=== PATIENT | female | born 1955 ===

== ENCOUNTER 2017-04-21 08:27 | Emergency (ER) | payer OTHER ==
[2017-04-21 08:43] VITALS: TEMP 97.1
--- NOTE | 2017-04-21 09:24 | ED PDOC ---
HPI: Abdomen Time Seen by Provider: 04/21/17 09:12 Chief Complaint (Nursing): GI Problem Chief Complaint (Provider): Abdominal pain History Per: Patient History/Exam Limitations: no limitations Onset/Duration Of Symptoms: Days (x 3) Current Symptoms Are (Timing): Still Present Associated Symptoms: Constipation Additional Complaint(s): Ida is a 61 y/o female with no past medical history who presents to the ED complaining of epigastric abdominal pain associated with constipation, ongoing for 3 days. Denies any associated fever, back pain, nausea, vomiting, or hematochezia. Patient also complaining of burning on urination. PMD: Unknown Past Medical History Reviewed: Historical Data, Nursing Documentation, Vital Signs Vital Signs: Last Vital Signs Temp 97.1 F L 04/21/17 08:42 Pulse 69 04/21/17 08:42 Resp 20 04/21/17 08:42 BP 121/83 04/21/17 08:42 Pulse Ox 98 04/21/17 11:12 - Medical History PMH: No Chronic Diseases - Surgical History Surgical History: Back Surgery Other surgeries: Partial hysterectomy - Family History Family History: States: Unknown Family Hx - Social History Current smoker - smoking cessation education provided: No Alcohol: None Drugs: Denies - Immunization History Hx Tetanus Toxoid Vaccination: No Hx Influenza Vaccination: No Hx Pneumococcal Vaccination: No - Home Medications Home Medications: Ambulatory Orders Medication Instructions Recorded Famotidine [Pepcid] 20 mg PO Q12 #20 tab 04/21/17 Polyethylene Glycol 3350 [Miralax] 17 gm PO DAILY #10 packet 04/21/17 - Allergies Allergies/Adverse Reactions: Allergies Allergy/AdvReac Type Severity Reaction Status Date / Time No Known Allergies Allergy Verified 04/21/17 08:48 Review of Systems ROS Statement: Except As Marked, All Systems Reviewed And Found Negative Constitutional: Negative for: Fever Gastrointestinal: Positive for: Abdominal Pain (Epigastric), Constipation. Negative for: Nausea, Vomiting, Hematochezia Genitourinary Female: Positive for: Other (Burning on urination) Musculoskeletal: Negative for: Back Pain Physical Exam - Reviewed Nursing Documentation Reviewed: Yes Vital Signs Reviewed: Yes - Physical Exam Appears: Positive for: Non-toxic, No Acute Distress Head Exam: Positive for: ATRAUMATIC, NORMAL INSPECTION, NORMOCEPHALIC Skin: Positive for: Normal Color, Warm, Dry Eye Exam: Positive for: EOMI, Normal appearance, PERRL Neck: Positive for: Normal, Painless ROM, Supple Cardiovascular/Chest: Positive for: Regular Rate, Rhythm. Negative for: Murmur Respiratory: Positive for: Normal Breath Sounds. Negative for: Accessory Muscle Use, Respiratory Distress Gastrointestinal/Abdominal: Positive for: Soft, Tenderness (Mild epigastric tenderness on palpation) Back: Positive for: Normal Inspection. Negative for: L CVA Tenderness, R CVA Tenderness Extremity: Positive for: Normal ROM. Negative for: Pedal Edema, Deformity Neurologic/Psych: Positive for: Alert, Oriented - Laboratory Results Result Diagrams: 04/21/17 09:37 04/21/17 10:31 - ECG O2 Sat by Pulse Oximetry: 98 (RA) Pulse Ox Interpretation: Normal Medical Decision Making Medical Decision Making: Time: 9:17 Initial Plan: --CMP --CBC --Urine culture --Urine dipstick --Pending reevaluation Time: 10:52 --Pepcid 20 mg PO Scribe Attestation: Documented by Dannielle Yin, acting as a scribe for Ravi Hooker MD Provider Scribe Attestation: All medical record entries made by the Scribe were at my direction and personally dictated by me. I have reviewed the chart and agree that the record accurately reflects my personal performance of the history, physical exam, medical decision making, and the department course for this patient. I have also personally directed, reviewed, and agree with the discharge instructions and disposition. Disposition - Clinical Impression Clinical Impression: Gastritis, Constipation - Patient ED Disposition Is Patient to be Admitted: No Counseled Patient/Family Regarding: Studies Performed, Diagnosis, Need For Followup, Rx Given - Disposition Referrals: [facility] [Outside] Disposition: Routine/Home Disposition Time: 11:19 Condition: FAIR Prescriptions: Famotidine [Pepcid] 20 mg PO Q12 #20 tab Polyethylene Glycol 3350 [Miralax] 17 gm PO DAILY #10 packet Instructions: Gastritis (ED), Constipation (ED) Forms: [facility] (Vietnamese) Print Language: YAKUT
[2017-04-21 09:39] LABS: BASO # 0.1 K/uL (0.0-0.2); EOS # 0.3 K/uL (0.0-0.7); EOS % 3.4 % (0.0-4.0); HEMOGLOBIN 12.9 g/dL (12.0-16.0); LYMPH # 2.5 K/uL (1.0-4.3); LYMPH % 33.3 % (20.0-40.0); MEAN CELL VOLUME 86.2 fl (81.0-99.0); MEAN CORPUSCULAR HEMOGLOBIN 28.2 pg (27.0-31.0); MEAN CORPUSCULAR HGB CONC 32.8 g/dL (33.0-37.0); MEAN PLATELET VOLUME 10.3 fl (7.2-11.7); MONO # 0.5 K/uL (0.0-0.8); MONO % 6.8 % (0.0-10.0); NEUT # 4.1 K/uL (1.8-7.0); NEUT % 55.5 % (50.0-75.0); RBC 4.55 Mil/uL (3.80-5.20); WHITE BLOOD COUNT 7.4 K/uL (4.8-10.8)
[2017-04-21 10:48] LABS: ALB/GLOB RATIO 1.3 (1.0-2.1); ALBUMIN 4.2 g/dL (3.5-5.0); ALT/SGPT 28 U/L (9-52); AST/SGOT 23 U/L (14-36); BLOOD UREA NITROGEN 13 mg/dl (7-17); CALCIUM 9.2 mg/dL (8.4-10.2); GFR AFRICAN-AMERICAN > 60; GFR NON-AFRICAN AMERICAN > 60
[2017-04-21 11:38] VITALS: BP 120/84; PULSE 72; RESP 17; O2SAT 99
== END 2017-04-21 11:57 | disposition home or self-care (01) ==
LOC: H.ER 08:27
DX: K59.00 Constipation, unspecified (principal); K29.70 Gastritis, unspecified, without bleeding

== ENCOUNTER 2017-05-10 12:49 | Emergency (ER) | payer OTHER ==
[2017-05-10 13:17] VITALS: BP 116/67; PULSE 68; RESP 18; TEMP 98; O2SAT 99
[2017-05-10] MEDS ORDERED: Iohexol 240 (50 ml) PO ONE (13:52)
[2017-05-10] MEDS ORDERED: Iohexol 240 (50 ml) ONE (14:34)
--- NOTE | 2017-05-10 14:58 | RAD ---
PROCEDURE: Radiographs of the chest and abdomen (obstructive series) HISTORY: abd pain COMPARISON: No prior. TECHNIQUE: AP radiograph of the chest, with upright and supine radiographs of the abdomen. FINDINGS: CHEST: Lungs: Minor linear atelectasis/scarring changes seen in the left mid to lower lung field Cardiovascular: Heart size is borderline - mildly enlarged. . Pleura: No pleural fluid. No pneumothorax. Other findings: None. ABDOMEN AND PELVIS: Bowel: Stool is seen throughout the ascending and transverse colon suggesting mild constipation. No evidence to suggest acute mechanical bowel obstruction. . Free air: No evidence of free intraperitoneal air seen under the diaphragmatic surfaces. Bones: No acute fracture seen. E. Other findings: None. IMPRESSION: Minor linear atelectasis/ scarring change left mid to lower lung field. Findings also suggest mild constipation.
--- NOTE | 2017-05-10 15:14 | ED PDOC ---
HPI: Abdomen Time Seen by Provider: 05/10/17 13:32 Chief Complaint (Nursing): Abdominal Pain Chief Complaint (Provider): Abdominal Pain History Per: Patient History/Exam Limitations: no limitations Onset/Duration Of Symptoms: Days (x3 weeks), Intermittent Episodes Current Symptoms Are (Timing): Still Present Additional Complaint(s): Ida Carlson is a 61 year old female who presents to the emergency department with a complaint of worsening abdominal pain associated with some nausea ongoing intermittently for 3 weeks. Denied any fever, chills, vomiting, dysuria, hematuria, taking pain medication for relief, recent travels or following up with PCP. Upon review of old charts, patient was seen in ED at [facility] 2 weeks ago for a UTI and discharged with antibiotics. PMD: none provided Past Medical History Reviewed: Historical Data, Nursing Documentation, Vital Signs Vital Signs: Last Vital Signs Temp 98 F 05/10/17 13:14 Pulse 68 05/10/17 13:14 Resp 18 05/10/17 13:14 BP 116/67 05/10/17 13:14 Pulse Ox 99 05/10/17 19:51 - Medical History PMH: No Chronic Diseases - Surgical History Surgical History: Back Surgery - Family History Family History: States: Unknown Family Hx - Social History Current smoker - smoking cessation education provided: No Alcohol: None Drugs: Denies - Immunization History Hx Tetanus Toxoid Vaccination: No Hx Influenza Vaccination: No Hx Pneumococcal Vaccination: No - Home Medications Home Medications: Ambulatory Orders Medication Instructions Recorded Famotidine [Pepcid] 20 mg PO Q12 #20 tab 04/21/17 Polyethylene Glycol 3350 [Miralax] 17 gm PO DAILY #10 packet 04/21/17 Pantoprazole [Protonix EC Tab] 20 mg PO DAILY #30 ect 05/10/17 Sucralfate [Carafate] 1 gm PO QID #30 tablet 05/10/17 - Allergies Allergies/Adverse Reactions: Allergies Allergy/AdvReac Type Severity Reaction Status Date / Time No Known Allergies Allergy Verified 04/21/17 08:48 Review of Systems ROS Statement: Except As Marked, All Systems Reviewed And Found Negative Constitutional: Negative for: Fever, Chills Gastrointestinal: Positive for: Nausea, Abdominal Pain (intermittent). Negative for: Vomiting Genitourinary Female: Negative for: Dysuria, Hematuria Physical Exam - Reviewed Nursing Documentation Reviewed: Yes Vital Signs Reviewed: Yes - Physical Exam Appears: Positive for: Well, Non-toxic, Uncomfortable (anxious) Head Exam: Positive for: ATRAUMATIC, NORMAL INSPECTION, NORMOCEPHALIC Neck: Positive for: Normal, Painless ROM, Supple Cardiovascular/Chest: Positive for: Regular Rate, Rhythm (normal S1, S2 sounds) . Negative for: Chest Non Tender Respiratory: Positive for: Normal Breath Sounds. Negative for: Crackles, Rales , Rhonchi, Wheezing, Respiratory Distress Gastrointestinal/Abdominal: Positive for: Soft, Tenderness (diffused in all quadrants), Guarding (mild to moderate). Negative for: Normal Exam Back: Positive for: Normal Inspection. Negative for: L CVA Tenderness, R CVA Tenderness Extremity: Positive for: Normal ROM Neurologic/Psych: Positive for: Alert (x3), parimutuel ticket checker II-XII, Oriented - Laboratory Results Result Diagrams: 05/10/17 15:00 05/10/17 15:00 - ECG O2 Sat by Pulse Oximetry: 99 (RA) Pulse Ox Interpretation: Normal Medical Decision Making Medical Decision Making: Initial Impression: Abdominal pain Initial Plan: * CT ABD/Pelvis with PO and IV contrast * Labs * Lipase * Urine dipstick * Pepcid 20mg IVP * Omnipaque 50ml PO * Morphine 2mg IVP * Blood culture * Urinalysis Time: 1456 --XRAY FINDINGS: CHEST: Lungs: Minor linear atelectasis/scarring changes seen in the left mid to lower lung field Cardiovascular: Heart size is borderline - mildly enlarged. . Pleura: No pleural fluid. No pneumothorax. Other findings: None. ABDOMEN AND PELVIS: Bowel: Stool is seen throughout the ascending and transverse colon suggesting mild constipation. No evidence to suggest acute mechanical bowel obstruction. Free air: No evidence of free intraperitoneal air seen under the diaphragmatic surfaces. Bones: No acute fracture seen. E. Other findings: None. IMPRESSION: Minor linear atelectasis/ scarring change left mid to lower lung field. Findings also suggest mild constipation. Time: 1742 --CT ABD/Pelvis FINDINGS: LOWER THORAX: Unremarkable. LIVER: Unremarkable. No gross lesion or ductal dilatation. GALLBLADDER AND BILE DUCTS: Gallstones are seen without evidence of acute cholecystitis. PANCREAS: Unremarkable. No gross lesion or ductal dilatation. SPLEEN: Unremarkable. ADRENALS: Unremarkable. No mass. KIDNEYS AND URETERS: Mild left hydronephrosis noted without evidence of obstructing stone. The kidneys enhance symmetrically. VASCULATURE: Unremarkable. No aortic aneurysm. BOWEL: There is distal stomach wall thickening noted. Mild small bowel wall thickening is also noted. No evidence of bowel obstruction. No evidence of colitis. APPENDIX: Normal appendix. PERITONEUM: Unremarkable. No free fluid. No free air. LYMPH NODES: Unremarkable. No enlarged lymph nodes. BLADDER: Unremarkable. REPRODUCTIVE: The uterus and adnexa are not visualized. BONES: No acute fracture. OTHER FINDINGS: None. IMPRESSION: Mild gastric and small bowel wall thickening suspicious for gastroenteritis. Mild left hydronephrosis without evidence of obstructing stone or perinephric stranding. Gallstones without evidence of acute cholecystitis. Time: 1899 --Patient is signed out to Dr. Nikos Ramos. Pending lab results and re- evaluation. Scribe Attestation: Documented by Milagros Odom, acting as a scribe for Jennie Staples MD. Provider Scribe Attestation: All medical record entries made by the Scribe were at my direction and personally dictated by me. I have reviewed the chart and agree that the record accurately reflects my personal performance of the history, physical exam, medical decision making, and the department course for this patient. I have also personally directed, reviewed, and agree with the discharge instructions and disposition. Disposition - Clinical Impression Clinical Impression: Gastritis - Patient ED Disposition Is Patient to be Admitted: Transfer of Care - Disposition Referrals: [facility] [Provider Group] [facility] [Provider Group] Melissa CHAU,MD Gregory [Medical Doctor] - Disposition Time: 19:00 Condition: STABLE Prescriptions: Pantoprazole [Protonix EC Tab] 20 mg PO DAILY #30 ect Sucralfate [Carafate] 1 gm PO QID #30 tablet Instructions: Gastritis (ED) Forms: [facility] (Sri Lankan) Print Language: VIETNAMESE - POAlxe Present On Arrival: None
[2017-05-10 15:26] LABS: BASO % 0.5 % (0.0-2.0); EOS # 0.2 K/uL (0.0-0.7); EOS % 1.7 % (0.0-4.0); LYMPH # 3.2 K/uL (1.0-4.3); LYMPH % 35.3 % (20.0-40.0); MEAN CELL VOLUME 85.3 fl (81.0-99.0); MEAN CORPUSCULAR HEMOGLOBIN 28.3 pg (27.0-31.0); MEAN CORPUSCULAR HGB CONC 33.2 g/dL (33.0-37.0); MEAN PLATELET VOLUME 10.5 fl (7.2-11.7); MONO # 0.6 K/uL (0.0-0.8); MONO % 6.5 % (0.0-10.0); NEUT # 5.1 K/uL (1.8-7.0); RED CELL DISTRIBUTION WIDTH 12.8 % (11.5-14.5); WHITE BLOOD COUNT 9.1 K/uL (4.8-10.8)
[2017-05-10 15:40] LABS: ALB/GLOB RATIO 1.3 (1.0-2.1); ALKALINE PHOSPHATASE 71 U/L (38-126); ALT/SGPT 26 U/L (9-52); AST/SGOT 23 U/L (14-36); BILIRUBIN,TOTAL 0.6 mg/dl (0.2-1.3); BLOOD UREA NITROGEN 13 mg/dl (7-17); CALCIUM 9.6 mg/dL (8.4-10.2); CARBON DIOXIDE 26 mmol/L (22-30); CHLORIDE 105 mmol/L (98-107); GFR AFRICAN-AMERICAN > 60; GLUCOSE,RANDOM 94 mg/dL (65-105); LIPASE 100 U/L (23-300); POTASSIUM 4.2 MMOL/L (3.6-5.0); SODIUM 140 mmol/l (132-148); TOTAL PROTEIN 7.4 G/DL (6.3-8.2)
[2017-05-10] MEDS ORDERED: Iohexol 300 100 ML IJ ONE (16:24)
[2017-05-10] MEDS ORDERED: Sodium Chloride 0.9% 50 ML IV ONE (16:24)
--- NOTE | 2017-05-10 17:44 | CT ---
PROCEDURE: CT Abdomen and Pelvis with contrast HISTORY: diffuse abd pain/tenderness COMPARISON: None. TECHNIQUE: Contrast dose: 90 mL of Omnipaque 300. Axial and reformatted coronal and sagittal CT images of the abdomen and pelvis were obtained after IV and oral contrast administration. Radiation dose: Total exam DLP = 764.71 mGy-cm. This CT exam was performed using one or more of the following dose reduction techniques: Automated exposure control, adjustment of the mA and/or kV according to patient size, and/or use of iterative reconstruction technique. FINDINGS: LOWER THORAX: Unremarkable. LIVER: Unremarkable. No gross lesion or ductal dilatation. GALLBLADDER AND BILE DUCTS: Gallstones are seen without evidence of acute cholecystitis. PANCREAS: Unremarkable. No gross lesion or ductal dilatation. SPLEEN: Unremarkable. ADRENALS: Unremarkable. No mass. KIDNEYS AND URETERS: Mild left hydronephrosis noted without evidence of obstructing stone. The kidneys enhance symmetrically. VASCULATURE: Unremarkable. No aortic aneurysm. BOWEL: There is distal stomach wall thickening noted. Mild small bowel wall thickening is also noted. No evidence of bowel obstruction. No evidence of colitis. APPENDIX: Normal appendix. PERITONEUM: Unremarkable. No free fluid. No free air. LYMPH NODES: Unremarkable. No enlarged lymph nodes. BLADDER: Unremarkable. REPRODUCTIVE: The uterus and adnexa are not visualized. BONES: No acute fracture. OTHER FINDINGS: None. IMPRESSION: Mild gastric and small bowel wall thickening suspicious for gastroenteritis. Mild left hydronephrosis without evidence of obstructing stone or perinephric stranding. Gallstones without evidence of acute cholecystitis.
[2017-05-10 18:15] LABS: RBC URINE 2 /hpf (0-3); URINE BACTERIA RARE (<OCC); URINE BILIRUBIN NEGATIVE (NEGATIVE); URINE BLOOD NEGATIVE (NEGATIVE); URINE COLOR YELLOW (YELLOW); URINE GLUCOSE (UA) NEG (Normal); URINE KETONE 20 mg/dL (NEGATIVE); URINE LEUKOCYTE ESTERASE SMALL Leu/uL (Negative); URINE PROTEIN NEGATIVE (NEGATIVE); URINE UROBILINOGEN 0.2-1.0 mg/dL (0.2-1.0); WBC URINE 4 /hpf (0-5)
[2017-05-10] MEDS ORDERED: Sucralfate 1 gm/10 ml Oral Susp UD PO STA (18:50)
[2017-05-10 19:10] LABS: VENOUS BLOOD GAS PCO2 27 mmHg (40-60); VENOUS BLOOD PH 7.56 (7.32-7.43)
--- NOTE | 2017-05-10 19:45 | CP.PCM.CON ---
History of Present Illness - History of Present Illness History of Present Illness: REASON FOR CONSULT: ABD PAIN CC: STOMACH PAIN HPI: 81 year old female with no past medical history presents to the emergency room with moderate to severe midepigastric pain sharp in nature, nonradiating, associated with nausea, worse in the mornings when she wakes up. Patient states she has had heartburn in the past. Pt is afebrile, no wbc, normal liver enzymes , CT showed mild gastritis. Patient states she maintains a diet high in coffee, citrus and other acidic fruit. She also uses Advil regularly for back pain. Patient pain was improved with PPI. She is stable to be discharged home with PPI , Carafate, and referral to the [facility] and the GI clinic. ROS: PER HPI ALL OTHER SYSTEMS REVIEWED AND NEGATIVE BY ME PMSH: DENIES FH: DENIES SH: DENIES TOBACCO, ETOH, IVDU MEDS: NONE ALLERGIES: NKDA Temp Pulse Resp BP Pulse Ox 98 F 68 18 116/67 99 05/10/17 13:14 05/10/17 13:14 05/10/17 13:14 05/10/17 13:14 05/10/17 19:51 GEN: WDWN, alert, cooperative HEENT: NCAT, PERRL, EOMI NECK: supple, no JVD, no lymphadenopathy CARDIAC: +S1S2 RRR LUNG: CTAB No WRR ABD: SOFT NT ND BSX4 NO MASSES NO HSM EXT: +pedal pulses, equal strength R leg wound, erythematous, with some induration, draining serosanguinous fluid NEURO: AAOx3 SKIN warm, dry PSYCH normal mood, normal affect 05/10/17 15:00 05/10/17 15:00 05/10/17 05/10/17 05/10/17 19:05 17:40 15:00 WBC RBC Hgb Hct MCV MCH MCHC RDW Plt Count MPV Neut % (Auto) Lymph % (Auto) [place] % (Auto) Eos % (Auto) Baso % (Auto) Neut # Lymph # [place] # Eos # Baso # pO2 43 VBG pH 7.56 H VBG pCO2 27 L VBG HCO3 27.0 VBG Total CO2 25.0 VBG O2 Sat (Calc) 89.3 H VBG Base Excess 3.0 H VBG Potassium 3.3 L Glucose 96 Lactate 0.8 FiO2 21.0 Sodium 136.0 140 Potassium 4.2 Chloride 104.0 105 Carbon Dioxide 26 Anion Gap 13 BUN 13 Creatinine 0.6 L Est GFR ( Amer) > 60 Est GFR (Non-Af Amer) > 60 Random Glucose 94 Calcium 9.6 Total Bilirubin 0.6 AST 23 ALT 26 Alkaline Phosphatase 71 Total Protein 7.4 Albumin 4.3 Globulin 3.2 Albumin/Globulin Ratio 1.3 Lipase 100 Venous Blood Potassium 3.3 L Urine Color Yellow Urine Clarity Slighty-cloudy Urine pH 8.0 Ur Specific [place] 1.024 Urine Protein Negative Urine Glucose (UA) Neg Urine Ketones 20 Urine Blood Negative Urine Nitrate Negative Urine Bilirubin Negative Urine Urobilinogen 0.2-1.0 Ur Leukocyte Esterase Small Urine RBC (Auto) 2 Urine Microscopic WBC 4 Ur Squamous Epith Cells < 1 Urine Bacteria Rare 05/10/17 15:00 WBC 9.1 RBC 4.57 Hgb 13.0 Hct 39.0 MCV 85.3 MCH 28.3 MCHC 33.2 RDW 12.8 Plt Count 171 MPV 10.5 Neut % (Auto) 56.0 Lymph % (Auto) 35.3 [place] % (Auto) 6.5 Eos % (Auto) 1.7 Baso % (Auto) 0.5 Neut # 5.1 Lymph # 3.2 [place] # 0.6 Eos # 0.2 Baso # 0.0 pO2 VBG pH VBG pCO2 VBG HCO3 VBG Total CO2 VBG O2 Sat (Calc) VBG Base Excess VBG Potassium Glucose Lactate FiO2 Sodium Potassium Chloride Carbon Dioxide Anion Gap BUN Creatinine Est GFR ( Amer) Est GFR (Non-Af Amer) Random Glucose Calcium Total Bilirubin AST ALT Alkaline Phosphatase Total Protein Albumin Globulin Albumin/Globulin Ratio Lipase Venous Blood Potassium Urine Color Urine Clarity Urine pH Ur Specific [place] Urine Protein Urine Glucose (UA) Urine Ketones Urine Blood Urine Nitrate Urine Bilirubin Urine Urobilinogen Ur Leukocyte Esterase Urine RBC (Auto) Urine Microscopic WBC Ur Squamous Epith Cells Urine Bacteria 81 year old female with no past medical history presents to the emergency room with moderate to severe midepigastric pain sharp in nature, nonradiating, associated with nausea, worse in the mornings when she wakes up. Patient states she has had heartburn in the past. Pt is afebrile, no wbc, normal liver enzymes , CT showed mild gastritis. Patient states she maintains a diet high in coffee, citrus and other acidic fruit. She also uses Advil regularly for back pain. Patient pain was improved with PPI. She is stable to be discharged home with PPI , Carafate, and referral to the [facility] and the GI clinic. ABDOMINAL PAIN pt in no acute distress HD STABLE afebrile, no wbc, normal liver enzymes lactic acid normal CT + MILD gastritis Patient stable to be discharged home with PPI, Carafate, and refer to [facility] with follow up with GI Clinic. Also counseled extensively on diet changes for likely GERD/gastritis. Past Patient History - Past Social History Alcohol: None Drugs: Denies - PSYCHIATRIC Hx Substance Use: No - SURGICAL HISTORY Hx Musculoskeletal Surgery: Yes - ANESTHESIA Hx Anesthesia: Yes Hx Anesthesia Reactions: No Meds Home Medications: Home Medication List Medication Instructions Recorded Confirmed Type Pantoprazole [Protonix EC Tab] 20 mg PO DAILY #30 ect 05/10/17 Rx Sucralfate [Carafate] 1 gm PO QID #30 tablet 05/10/17 Rx Allergies/Adverse Reactions: Allergies Allergy/AdvReac Type Severity Reaction Status Date / Time No Known Allergies Allergy Verified 04/21/17 08:48 Results - Vital Signs Recent Vital Signs: Last Vital Signs Temp 98 F 05/10/17 13:14 Pulse 68 05/10/17 13:14 Resp 18 05/10/17 13:14 BP 116/67 05/10/17 13:14 Pulse Ox 99 05/10/17 19:03 - Labs Result Diagrams: 05/10/17 15:00 05/10/17 15:00 Labs: Laboratory Results - last 24 hr 05/10/17 05/10/17 05/10/17 15:00 15:00 17:40 WBC 9.1 RBC 4.57 Hgb 13.0 Hct 39.0 MCV 85.3 MCH 28.3 MCHC 33.2 RDW 12.8 Plt Count 171 MPV 10.5 Neut % (Auto) 56.0 Lymph % (Auto) 35.3 [place] % (Auto) 6.5 Eos % (Auto) 1.7 Baso % (Auto) 0.5 Neut # 5.1 Lymph # 3.2 [place] # 0.6 Eos # 0.2 Baso # 0.0 pO2 VBG pH VBG pCO2 VBG HCO3 VBG Total CO2 VBG O2 Sat (Calc) VBG Base Excess VBG Potassium Glucose Lactate FiO2 Sodium 140 Potassium 4.2 Chloride 105 Carbon Dioxide 26 Anion Gap 13 BUN 13 Creatinine 0.6 L Est GFR ( Amer) > 60 Est GFR (Non-Af Amer) > 60 Random Glucose 94 Calcium 9.6 Total Bilirubin 0.6 AST 23 ALT 26 Alkaline Phosphatase 71 Total Protein 7.4 Albumin 4.3 Globulin 3.2 Albumin/Globulin Ratio 1.3 Lipase 100 Venous Blood Potassium Urine Color Yellow Urine Clarity Slighty-cloudy Urine pH 8.0 Ur Specific [place] 1.024 Urine Protein Negative Urine Glucose (UA) Neg Urine Ketones 20 Urine Blood Negative Urine Nitrate Negative Urine Bilirubin Negative Urine Urobilinogen 0.2-1.0 Ur Leukocyte Esterase Small Urine RBC (Auto) 2 Urine Microscopic WBC 4 Ur Squamous Epith Cells < 1 Urine Bacteria Rare 05/10/17 19:05 WBC RBC Hgb Hct MCV MCH MCHC RDW Plt Count MPV Neut % (Auto) Lymph % (Auto) [place] % (Auto) Eos % (Auto) Baso % (Auto) Neut # Lymph # [place] # Eos # Baso # pO2 43 VBG pH 7.56 H VBG pCO2 27 L VBG HCO3 27.0 VBG Total CO2 25.0 VBG O2 Sat (Calc) 89.3 H VBG Base Excess 3.0 H VBG Potassium 3.3 L Glucose 96 Lactate 0.8 FiO2 21.0 Sodium 136.0 Potassium Chloride 104.0 Carbon Dioxide Anion Gap BUN Creatinine Est GFR ( Amer) Est GFR (Non-Af Amer) Random Glucose Calcium Total Bilirubin AST ALT Alkaline Phosphatase Total Protein Albumin Globulin Albumin/Globulin Ratio Lipase Venous Blood Potassium 3.3 L Urine Color Urine Clarity Urine pH Ur Specific [place] Urine Protein Urine Glucose (UA) Urine Ketones Urine Blood Urine Nitrate Urine Bilirubin Urine Urobilinogen Ur Leukocyte Esterase Urine RBC (Auto) Urine Microscopic WBC Ur Squamous Epith Cells Urine Bacteria
--- NOTE | 2017-05-10 19:49 | ED PDOC ---
- Laboratory Results Result Diagrams: 05/10/17 15:00 05/10/17 15:00 - ECG O2 Sat by Pulse Oximetry: 99 (RA) Pulse Ox Interpretation: Normal Medical Decision Making Medical Decision Making: Time: 1899 --Patient was endorsed to provider by Dr. Jennie Staples. Pending VBG results. Time: 1939 --Upon hospitalist evaluation, patient is feeling better, medically stable and requires no further treatment in the ED at this time. Patient will be discharged home with Rx for Protonix and Carafete. Counseling was provided and all questions were answered regarding diagnosis and need for follow up with PCP. There is agreement to discharge plan. Return if symptoms persist or worsen. Clinical Impression: Gastritis Scribe Attestation: Documented by Milagros Odom, acting as a scribe for Nikos Ramos MD. Provider Scribe Attestation: All medical record entries made by the Scribe were at my direction and personally dictated by me. I have reviewed the chart and agree that the record accurately reflects my personal performance of the history, physical exam, medical decision making, and the department course for this patient. I have also personally directed, reviewed, and agree with the discharge instructions and disposition. Disposition Counseled Patient/Family Regarding: Studies Performed, Diagnosis, Need For Followup, Rx Given - Clinical Impression Clinical Impression: Gastritis - POA Present On Arrival: None - Disposition Referrals: [facility] [Provider Group] [facility] [Provider Group] Melissa CHAU,MD Gregory [Medical Doctor] - Disposition: Routine/Home Disposition Time: 19:40 Condition: STABLE Prescriptions: Pantoprazole [Protonix EC Tab] 20 mg PO DAILY #30 ect Sucralfate [Carafate] 1 gm PO QID #30 tablet Instructions: Gastritis (ED) Forms: [employer] (Dominican) Print Language: ERITREAN
== END 2017-05-10 20:01 | disposition home or self-care (01) ==
LOC: H.ER 12:49
DX: K29.70 Gastritis, unspecified, without bleeding (principal)
CPT/HCPCS: 74022; 74177; 80053; 81003; 82803; 83690; 85025; 87040; 96374; 96375; 99284; J2270; Q9966; Q9967